=== PATIENT | male | born 1985 | race Two or more races ===

== ENCOUNTER 2017-07-31 14:34 | Emergency (ER) | payer OTHER ==
[~2017-07-31] VITALS: Ht 170.2 cm; Wt 86.2 kg
[2017-07-31 16:15] VITALS: BP 130/77
[2017-07-31] MEDS ORDERED: KETOROLAC TROMETH 60MG/2ML VIAL IM ONE ×2 (16:45)
== END 2017-07-31 17:00 | disposition home or self-care (01) ==
LOC: ER 14:34
DX: S83.91XA Sprain of unspecified site of right knee, initial encounter (principal); X58.XXXA Exposure to other specified factors, initial encounter; Y93.89 Activity, other specified; Y99.0 Civilian activity done for income or pay; Y92.69 Other specified industrial and construction area as the place of occurrence of the external cause
CPT/HCPCS: 73562; 96372; 99284; J1885